=== PATIENT | male | born 1950 | race Caucasian/White ===

== ENCOUNTER 2025-05-04 17:48 | Emergency (ER) | payer BC, SELFPAY ==
[2025-05-04 17:53] VITALS: BP 199/84
[2025-05-04 21:20] VITALS: BP 209/82
[2025-05-04 21:23] VITALS: BP 188/81
[2025-05-04 21:26] VITALS: BP 162/91
[2025-05-04] MEDS: ADACEL 0.5 ML IM (21:43)
--- NOTE | 2025-05-04 23:14 | ED.GENMED ---
History of Present Illness
General
Chief Complaint: Skin Surface Trauma
Source: patient and family
Exam Limitations: none
Time Seen by Provider: 05/04/25 20:27
Nursing documentation reviewed up to this point in time: agreed with
History of Present Illness
History of Present Illness:
pt is a 75 yo M right hand domiannt
htn
her with R FINGER LACERATION from a sharp piece of metal when he was lifting something tonight
he has controlled bleeding and a right middle phalanx laceration
some distal sensation deficit (slightly dminished sensation distally)
nomral flexion
tetanus outdated
Past History
Past History
ED Past Medical History: HTN, Hypercholesterolemia and NIDDM
ED Past Surgical History: Orthopedic and Other (hernia repair)
Social History
Tobacco: Non-smoker
Alcohol: None
Drug: None
Living: with family
Review of Systems
Review of Systems
Allergies reviewed?: Yes
All Other Systems: Not applicable
Phy Exam
Physical Exam
Physical Exam:
GENERAL: Alert , in no apparent distress, comfortable at rest
HEAD: NCAT
CV: cap refill intact
NEUROLOGICAL: Alert and oriented, no focal neuro deficits, , 5/5 strength, sensation slightly dec to light touch of distal radial side of the index finger, full ROm
SKIN: Warm and dry, irregular shaped laceration to R palmar index finger extending to the radial side of the digit just distal to the PIP and to the middle phalanx region
measuring approx 3 cm
MUSCULOSKELETAL: full finger ROM
no flexion limitation
normal extension;
PSYCH: Normal and appropriate interaction.
Course
Orders/Labs/Results
Orders:
Orders
05/04/25 21:29
Tetanus/Diphth/Acelpertussis [Adacel] 0.5 ml IM .ONCE ONE
Vital Signs
Initial and Last Documented VS:
Initial Vital Signs
Temp Pulse Resp BP Pulse Ox
36.4 C 62 18 199/84 99
05/04/25 17:53 05/04/25 17:53 05/04/25 17:53 05/04/25 17:53 05/04/25 17:53
Last Documented Vital Signs
Temp Pulse Resp BP Pulse Ox
36.4 C 71 19 162/91 97
05/04/25 17:53 05/04/25 21:26 05/04/25 21:26 05/04/25 21:26 05/04/25 21:26
Procedures
Laceration Closure
Right Second Finger(s):
Status of Wound: clean
Size of Wound in cm: 3
Description of Wound Edges: ragged
Preparation: cleaned with saline
Anesthesia: 1% Lidocaine
Revision/Debridement: routine- no revision
Wound exploration: explored to base- no FB and no tendon involvement
Type of Closure: single layer closure
Skin Closure Material: 5-0 nylon
Number of sutures: 5
MDM/Problems Addressed
Differential Diagnosis Includes:
finger laceration
MDM/Problems Addressed:
75 y/o M right index finger laceration
slight dec sensation distally on the radial aspect
normal ROM
tetanus outdated
irrigatd
anestehtized
sutures well approximated wound
bleeding controlled
got anxious during procedure, had elevated BP 200/80 which came down 160/90 on its own
likely just from anxiety
*Critical Care Note
Total Time (30-74mins, 75-104mins- exclusive of procedures): Not Applicable
ED Attending Note
-
Portions of this chart may have been created with voice recognition software.� Occasional wrong word or��sound alike� substitutions may have occurred due to the inherent limitations of voice recognition software.
Discharge Plan
Departure
Patient Disposition: Home (Routine Discharge)
Date of Disposition: 05/04/25
Time of Disposition: 21:29
Patient with high blood pressure during this ER visit?: Yes
Condition: Fair
Covid-19: Not Applicable
Discharge Problem:
Laceration of finger
Instructions: Laceration Repair With Stitches (DC), BLOOD PRESSURE
Prescriptions:
No Action
amlodipine 5 MG tablet
10 mg PO DAILY
ramipril 10 MG capsule
10 mg PO BID
repaglinide [Prandin] 0.5 mg Tablet
0.5 mg PO BID
metformin 1,000 mg Tablet
1,000 mg PO BID
rosuvastatin [Crestor] 10 mg Tablet
10 mg PO DAILY
tramadol 50 mg tablet
50 mg PO BID PRN (Reason: Pain) Qty: 14 0RF
Referrals:
Agus Hdez, [Family Provider] - Follow up in 5-7 days
Activity Restrictions/Additional Instructions:
KEEP THE WOUND CLEAN AND DRY FOR 24 HOURS
AFTER THAT YOU CAN GET IT WET IN THE BATH/SHOWER ONCE A DAY AND MAKE SURE IT IS CLEAN AND THERE IS NO DRIED BLOOD ON THE STITCHES
APPLY NEOSPORIN AND A BANDAID
THE STITCHES NEED TO BE REMOVED IN ABOUT 7-10 DAYS, SEE YOUR DOCTOR FOR THIS.
THE LAST DAY BEFORE STITCHES OUT, NO OINTMENT, LEAVE OPEN TO AIR
WATCH FOR SIGNS OF INFECTION AND RETURN NEEDED FOR PAIN, SWELLING, REDNESS, DRAINAGE, BLEEDING.
tylenol NEEDED FOR PAIN.
YOU CAN FOLLOW UP WITH A HAND DOCTOR DUE TO THE NUMBNESS; THIS IS PROBABLY JUST TEMPORARY
THERE WAS NO OBVIOUS NERVE INJURY
Interventions
Interventions:
*Risk Screen - Suicide Last Done: 05/04/25 20:07
*General Assessment Last Done: 05/04/25 20:07
*Neglect/Abuse Screening Last Done: 05/04/25 20:07
*ED- Fall Risk Assessment Last Done: 05/04/25 20:07
*ED COVID-19 Vaccine History Last Done: 05/04/25 20:07
*Nursing Disposition Last Done: 05/04/25 21:52
ED-Skin Assessment Last Done: 05/04/25 20:07
Discharge Date and Time
Discharge Date/Time: 05/04/25 21:52
Print Language: YI
== END 2025-05-04 21:52 | disposition home or self-care (01) ==
LOC: EMR 17:48
PROVIDERS: EMERGENCY PHYSICIAN Emergency Medicine; FAMILY PHYSICIAN Internal Medicine
DX: S61.210A Laceration without foreign body of right index finger without damage to nail, initial encounter (principal); W26.8XXA Contact with other sharp object(s), not elsewhere classified, initial encounter; Z23 Encounter for immunization; I10 Essential (primary) hypertension; E11.9 Type 2 diabetes mellitus without complications; E78.00 Pure hypercholesterolemia, unspecified; F41.9 Anxiety disorder, unspecified
CPT/HCPCS: 99282; 12002; 90471; 90715